=== PATIENT | male | born 1950 | race Caucasian/White ===

== ENCOUNTER 2016-05-18 08:24 | Inpatient (IN) | payer BC ==
--- NOTE | 2016-05-12 17:49 | HP ---
HISTORY AND PHYSICAL: DATE OF ADMISSION/SURGERY: 05/18/16 PROCEDURE: Left total hip arthroplasty. CHIEF COMPLAINT: Left hip pain. HISTORY OF PRESENT ILLNESS: Mr. Velez is a 65-year-old gentleman with complaints of left hip pain. He has failed conservative management. He has elected to proceed with a left total hip arthroplasty, which is scheduled for with Dr. Schrader. PAST MEDICAL HISTORY: Diabetes, acid reflux. PAST SURGICAL HISTORY: Right total hip arthroplasty, cataract removal, left foot surgery for a bone spur. CURRENT MEDICATIONS: 1. Lovastatin. 2. Aspirin. 3. Glyburide. 4. Metformin. 5. Fish oil. 6. Zoton. 7. Glucosamine sulfate. ALLERGIES: No known drug allergies. FAMILY HISTORY: Heart disease, stomach cancer, diabetes. SOCIAL HISTORY: This 65-year-old gentleman lives with his . He is retired. He does not smoke, use drugs or alcohol. REVIEW OF SYSTEMS: A complete 14-point review of systems was reviewed with the patient, was all negative except history of diabetes. PHYSICAL EXAMINATION GENERAL: He is well developed, well nourished, he is in no acute distress. VITAL SIGNS: He stands 6 feet 2 inches tall, weighs 230 pounds. His blood pressure is 150/72, his heart rate is 68. HEENT: Normocephalic, atraumatic. NECK: Supple. No palpable lymph nodes. Trachea is midline. PULMONARY: The lungs are clear to auscultation bilaterally. No wheezes, rhonchi, or rales. CARDIO: Regular rate and rhythm, strong S1 and S2. No murmurs, gallops, or rubs. No peripheral edema. ABDOMEN: Soft, nontender, nondistended. MUSCULOSKELETAL: Left lower extremity: Skin is intact. Decreased range of motion of the left hip. He walks with a slightly antalgic type gait. His lower extremity muscle group strengths are intact at 5/5. He has 2+ dorsalis pedis pulses and intact sensation. NEUROLOGICAL: He is alert and oriented x3. Cranial nerves II through XII are intact. ASSESSMENT/PLAN: Mr. Velez is a 65-year-old gentleman with complaints of left hip pain secondary to advanced osteoarthritis. He has failed conservative management and has elected to proceed with a left total hip arthroplasty which is scheduled for 05/18/[address] Schrader discussed the risks and benefits of the surgery at today's visit and all of his questions were answered. Coumadin and Colace were sent to his pharmacy for postoperative DVT prophylaxis, and to help with the constipation he has a current prescription for Percocet, so no pain medication was sent today. He will see Dr. Schrader back 10 to 14 days after the surgery. MAGEN ESQUEDA [id number]/[facility] #: [id number] MTDD
[~2016-05-18 08:24] MED LIST: Buffered Lidocaine 1% SYRIN* 3 ML/SYR SYRINGE INTRADERM ONE; Dexamethasone IV* 4 MG/ML 1 ML (4 MG) IV SLOW PU ONE; Famotidine IV* 10 MG/ML 2 ML (20 mg) IV ONE
[2016-05-18] MEDS ORDERED: ceFAZolin 2 GM PREMIX(*) 2 GM/50 ML BAG IVPB ONE (08:36)
[2016-05-18] MEDS ORDERED: Famotidine IV* 10 MG/ML 2 ML (20 mg) ONE (08:36)
[2016-05-18] MEDS ORDERED: Dexamethasone IV* 4 MG/ML 1 ML (4 MG) ONE (08:36)
[2016-05-18] MEDS ORDERED: Ondansetron INJ* 2 MG/ML VIAL ONE (10:15)
[2016-05-18] MEDS ORDERED: Propofol* 10 MG/ML 20 ML BTL IV PUSH ONE (10:15)
[2016-05-18] MEDS ORDERED: Bupivacaine 0.5% SDV PF* 30 ML VIAL ONE (10:15)
[2016-05-18] MEDS ORDERED: Midazolam* 1 MG/ML 5 ML VIAL (5 MG) ONE (10:58)
[2016-05-18] MEDS ORDERED: Morphine PF AMP (0.5MG/ML)* 5 MG/10 ML AMP ONE (10:59)
[2016-05-18] MEDS ORDERED: KETAMINE HCL* 50 MG/ML 10 ML VIAL ONE (10:59)
[2016-05-18] MEDS ORDERED: fentaNYL* 50 MCG/ML 2 ML VIAL (100 MCG VIAL) ONE (11:30)
[2016-05-18] MEDS ORDERED: Glycopyrrolate IV* 0.2 MG/ML 1 ML VIAL ONE (12:09)
[2016-05-18] MEDS ORDERED: Scopolamine 1.5 mg* PATCH TRANSDERM PRN (12:29)
[2016-05-18] MEDS ORDERED: oxyCODONE/Acetamin 5/325 MG* TAB PO PRN ×2 (12:29)
[2016-05-18] MEDS ORDERED: Nalbuphine* 20 MG/ML 1 ML VIAL IV PRN ×2 (12:29)
[2016-05-18] MEDS ORDERED: fentaNYL* 50 MCG/ML 2 ML VIAL (100 MCG VIAL) IV PRN (12:29)
[2016-05-18] MEDS ORDERED: Ondansetron INJ* 2 MG/ML VIAL IV PRN (12:29)
[2016-05-18] MEDS ORDERED: Naloxone* 0.4 MG/ML 1 ML VIAL IV PRN (12:29)
[2016-05-18] MEDS ORDERED: Phenylephrine INJ* 10 MG/ML 1 ML VIAL (10 MG) ONE (13:19)
--- NOTE | 2016-05-18 13:52 | RAD ---
INDICATION: Left total hip replacement TECHNIQUE: An AP view of the pelvis was obtained. FINDINGS: Single crosstable view demonstrates a right hip prosthesis in anatomic alignment in the AP projection. The acetabulum as well as femoral shaft components of the left prosthesis appear to be anatomically aligned. The left femoral head prosthesis is currently absent. Remaining visualized bones are intact and appropriately aligned. IMPRESSION: Anatomic alignment of incomplete left hip prosthesis in the AP projection.
[2016-05-18] MEDS ORDERED: Acetaminophen TAB* 325 MG PO PRN (14:18)
[2016-05-18] MEDS ORDERED: Bisacodyl SUPP* 10 MG SUPP PR PRN (14:29)
[2016-05-18] MEDS ORDERED: LACTULOSE* 30 ML UDC PO PRN (14:29)
[2016-05-18] MEDS ORDERED: Polyethylene Glycol 3350* 17 GM PACKET PO PRN (14:29)
--- NOTE | 2016-05-18 15:20 | RAD ---
HISTORY: Status post left total hip arthroplasty COMPARISONS: May 12, 2016 VIEWS: 3, Frontal view of the pelvis with frontal and frog-leg views of the left hip FINDINGS: BONE DENSITY: Normal. BONES: The patient is status post bilateral hip arthroplasty. On the left, there is no hardware failure or osteolysis. JOINTS: The patient is status post bilateral hip arthroplasty ALIGNMENT: There is no dislocation. SOFT TISSUES: Unremarkable. OTHER FINDINGS: None. IMPRESSION: STATUS POST BILATERAL HIP ARTHROPLASTY
[2016-05-18] MEDS ORDERED: Dextrose 50% Syringe 50 ML* 25 GM/50 ML SYRINGE IV PUSH PRN (15:56)
[2016-05-18] MEDS ORDERED: Insulin LISPRO* 1 UNITS UNIT SUBCUT SCH (16:30)
[2016-05-18] MEDS ORDERED: ceFAZolin 1 GM in Dextrose (*) 1 GM/50 ML BAG IVPB SCH (17:00)
[2016-05-18] MEDS ORDERED: Warfarin TAB(*) 6 MG PO ONE (17:00)
[2016-05-18] MEDS: Atorvastatin* 10 MG TAB PO SCH (17:34)
--- NOTE | 2016-05-18 18:24 | CONS ---
CONSULTATION REPORT: DATE OF CONSULT: 05/18/16 REQUESTING PHYSICIAN FOR CONSULTATION: Dr. Schrader. ATTENDING PHYSICIAN WHILE IN THE HOSPITAL: Dr. Edie Cornell *(report dictated by Dion Zaldivar NP). REASON FOR MEDICAL CONSULTATION: Medical management and evaluation of comorbid medical problems. HISTORY OF PRESENT ILLNESS: I refer you to Dr. Scrhader's H and P for further details. In short, Mr. Velez is a 65-year-old male patient who has been having some left hip pain for sometime. In fact, he had his right hip replaced and now the left hip was bothering him. He was failing conservative therapy in the outpatient setting. The patient felt that he was ready for left total hip replacement. This was offered by Dr. Schrader and he underwent the procedure today. He is evaluated in the PACU. He states he is feeling well. He denies having any chest pain or any shortness of breath. He denies having any abdominal pain. He states that his pain is well controlled. He denies having any numbness or tingling in the lower extremities. His only complaint is that he has a headache that feels worse if he lies down. Other than this, he denies having any other complaints. PAST MEDICAL HISTORY: Significant for: 1. Diabetes. 2. GERD. 3. Hyperlipidemia. 4. Osteoarthritis. 5. Hypertension. PAST SURGICAL HISTORY: 1. He has had a right total hip arthroplasty. 2. Foot surgery. 3. Cataracts. 4. Left total hip arthroplasty done today. HOME MEDICATIONS: According to the preop list include: 1. Zoton 15 mg p.o. q.a.m. 2. [place]-3 fatty acids 300 mg p.o. t.i.d. 3. Mevacor 40 mg daily. 4. Glimepiride/metformin 2 tablets p.o. b.i.d. 5. Glucosamine 1000 mg p.o. b.i.d. 6. Aspirin 81 mg daily. ALLERGIES TO MEDICATIONS: Include no known drug allergies. FAMILY HISTORY: His mother was diabetic. Father had heart disease. SOCIAL HISTORY: He does not smoke. He does not drink. Surrogate decision maker is his . REVIEW OF SYSTEMS: There is no documented fever. He denied having any significant weight change. There was no double vision. There is no ear discharge. No rhinorrhea. No sore throat. No thyroid enlargement. Denies having any chest pain. No orthopnea. No nocturnal dyspnea. There is no abdominal pain. No nausea. No vomiting. No dysuria. No frequency. No seizure. No loss of consciousness. No pruritus and no skin ulcerations. Review of 14 systems completed, all others negative. PHYSICAL EXAM: Reveals vital signs of blood pressure 133/67 with a pulse of 52 , respirations 16, O2 sat 99%, and temperature 97.3. Generally, at this time, Mr. Velez is a 65-year-old male patient. He appears to be well nourished, well developed. He does not appear to be in any acute distress. HEENT: Head atraumatic and normocephalic. Eyes: Sclerae are anicteric and not pale. Throat: Oral mucosa appears to be moist. No oropharyngeal erythema. Neck: Supple. Heart: Sounds S1, S2. Regular rate and rhythm. No murmurs, rubs, or gallops. Lungs: Clear to auscultation. No wheezes, rales, or rhonchi. Abdomen : Soft, flat, nontender. Bowel sounds present. Extremities: Pulses 2+ throughout. He is able to move the upper extremities with 5/5 strength. Lower extremities are in a hip abductor pillow. Distal CSM checks are intact. Neurologically, he is awake, alert, and oriented x3. No gross focal deficits. His skin is intact with the exception he has an incision to the left hip which is covered with a dressing, dry and intact. DIAGNOSTIC STUDIES/LAB DATA: Preoperatively revealed WBC of 6.3, RBC of 4.66, hemoglobin 14.4, hematocrit of 42, platelet count of 220. INR was 0.88. Sodium 137, potassium 4.3, chloride 107, bicarb 30, BUN 12, creatinine 1.09. Urine was negative preoperatively. He had an EKG preoperatively, which shows normal sinus rhythm, rate of 55. No ST elevations or T-wave inversions. He had a chest x-ray in December, which showed no active cardiopulmonary disease. Old medical records were reviewed. ASSESSMENT AND PLAN: Mr. Velez is a 65-year-old male patient coming into the orthopedic services today for elective left total hip replacement. We were asked to evaluate in consult for evaluation of his medical problems. Recommendations at this point are: 1. Status post left total hip replacement: I will defer the management of this to Dr. Schrader and her team. 2. Diabetes: We will go ahead and put him on sliding scale. 3. Gastroesophageal reflux disease: Continue medications as prescribed. 4. Hyperlipidemia: Continue statin therapy. 5. Hypertension: Currently not on any medications. We will continue lifestyle modifications. Blood pressure appears to be stable. 6. Arthritis: Follow up with his primary. 7. DVT prophylaxis: Per the primary team. 8. Fluids, electrolytes, and nutrition: I would recommend a consistent carbohydrate diet. TIME SPENT: Time spent on the consult was 60 minutes; greater than half the time was spent [id number] with the patient obtaining my history and physical, other half the time spent going over the plan of care with the patient and implementing plan of care. I did discuss the plan of care with my attending, Dr. Cornell; she is in agreement. DION ZALDIVAR NP CC: Dr. Schrader; Dr. Davison* [id number]/[facility] #: [id number] MTDD
[2016-05-18] MEDS: ceFAZolin 1 GM in Dextrose (*) 1 GM/50 ML BAG IVPB SCH (19:34)
[2016-05-18] MEDS: Magnesium Hydroxide LIQ* 30 ML UDC PO SCH (20:21)
[2016-05-18] MEDS: Docusate CAP* 100 MG PO SCH (20:21)
[2016-05-18] MEDS ORDERED: Glyburid/Metformin 2.5/500(NF) TAB PO SCH (21:00)
[2016-05-18] MEDS: Insulin LISPRO* 1 UNITS UNIT SUBCUT SCH (23:30)
[2016-05-19] MEDS ORDERED: diPHENhydraMINE PO* 25 MG PO PRN (03:30)
[2016-05-19] MEDS ORDERED: oxyCODONE TAB* 5 MG TAB PO PRN (03:30)
[2016-05-19] MEDS ORDERED: Morphine INJ* 10 MG/ML 1 ML SYRINGE IV PRN (03:30)
[2016-05-19] MEDS ORDERED: Ondansetron INJ* 2 MG/ML VIAL IV PRN (03:30)
[2016-05-19] MEDS ORDERED: diPHENhydraMINE IV* 50 MG/ML 1 ml VIAL (BENADRYL) IV PRN (03:30)
[2016-05-19] MEDS ORDERED: Ondansetron TAB* 4 MG PO PRN (03:30)
[2016-05-19] MEDS: ceFAZolin 1 GM in Dextrose (*) 1 GM/50 ML BAG IVPB SCH ×2 (03:57→12:08)
[2016-05-19] MEDS: oxyCODONE/Acetamin 5/325 MG* TAB PO PRN ×4 (03:59→18:23)
--- NOTE | 2016-05-19 05:44 | OP ---
OPERATIVE REPORT: DATE OF OPERATION: 05/18/16 DATE OF : 52 SURGEON: Vandana Schrader MD PROGRAM EVALUATOR: MAGEN Garsia ANESTHESIOLOGIST: Dr. Ryan. ANESTHESIA: Spinal epidural. PRE-OP DIAGNOSIS: Severe end-stage degenerative osteoarthritis of the left hip joint. POST-OP DIAGNOSIS: Severe end-stage degenerative osteoarthritis of the left hip joint. OPERATIVE PROCEDURE: Left total hip arthroplasty. INDICATIONS: Mr. Velez is a 65-year-old gentleman with over 1 year of increasingly severe left hip pain. He failed conservative treatment with antiinflammatories, pain medication, ambulatory assist jeny devices, and physical therapy. Radiographs confirmed end-stage arthritis of the hip joint with bone-on- bone contact. He elected to undergo left total hip arthroplasty due to continued pain and decreased quality of life. Informed consent was obtained from the patient. He understood the risks of the procedure included b ut were not limited to bleeding, infection, damage to nearby structures, continued pain, need for fu rther surgery, intraoperative fracture, nerve palsy, hardware failure or loosening, leg length discr epancy, dislocation, stroke, heart attack, blood clot, and . He wished to proceed. COMPLICATIONS: None. ESTIMATED BLOOD LOSS: 350 cc. SPECIMEN: Femoral head and acetabular reaming sent to Pathology. HARDWARE USED: This is uncemented ZapMe total hip hardware. For the cup, a Tritanium hemispheric al cluster hole shell 58F with 125-mm screw. For the insert, a Trident X3 0-degree polyethylene ins ert 40F. For the femoral stem, a size 4 Accolade TMZF with 127-degree neck. For the head, a Biolox delta 40 +0 ceramic femoral head. INTRAOPERATIVE FINDINGS: Intraoperatively, the patient was noted to have severe end-stage arthritis with full-thickness loss of the cartilage in the entire acetabulum and femoral head. Significant o steophyte formation along the inferior and anterior acetabulum. DESCRIPTION OF PROCEDURE: Mr. Velez was identified in the preanesthesia unit. His left lower extre mity was marked as the correct operative side. Informed consent was signed and placed in the chart. The patient was taken to the operating room and placed under spinal epidural anesthesia. A Tidwell catheter was placed. He was placed in the right lateral decubitus position on the peg board with al l bony prominences well padded. Left lower extremity was prepped and draped in the usual sterile fa shion. Preop time-out was made to correctly identify the patient's side and site. Appropriate zhao operative antibiotics were given within 1 hour of incision. A 14-cm posterior hip incision was made with a skin knife and carried down to the lateral fascial la maryjane. Lateral fascial layer was incised in line with the skin incision using a 10-blade. A Charnley retractor was placed. Piriformis and conjoint tendons were easily identified and elevated off the posterolateral femur using electrocautery. These were tagged with two #5 Ethibond's. Next, electro cautery was used to make a standard posterolateral capsular flap and this was also tagged with two # 5 Ethibond's. The hip was carefully dislocated. Lesser troch to center of the femoral head measured 60 mm. Oscillating saw was used to make the nayeli ropriate femoral neck cut. The femur was carefully retracted anteriorly. After appropriate placeme nt of retractors, the acetabulum was easily visualized. Long-handled knife was used to remove the r emaining labrum from the acetabular rim. The acetabulum was sequentially reamed up to a size 57. T here was a thick layer of osteophyte and complete loss of cartilage. 57 trial had excellent fit and stability. A Tritanium 58F cluster hole shell was chosen. This was impacted into the acetabulum w ithout difficulty. Stability of the cup was excellent. There was appropriate anteversion and abduc tion angle. 125-mm cancellous bone screw was placed in the superoposterior quadrant for extra stabi lity. A Trident X3 0-degree polyethylene insert was chosen, 40F. This was impacted into the acetab ulum without difficulty. Stability of the liner was checked and rechecked and noted to be stable. A thin osteotome was used to remove some anterior and inferior osteophytes. Attention was next turned to preparation of the femoral canal. After appropriate placement of retra ctor, the proximal femur was easily visualized. Box cut osteotome and canal finder were used to ent er the proximal femur. The canal was sequentially broached up to a size 4. Size 4 broach had good fit and appropriate anteversion. A 127 neck trial was chosen with a 40 +0 head trial. Lesser troch to center of the femoral head measured 60 mm. The hip was reduced and taken through range of motio n. The hip was extremely stable in all positions. There was good leg length and appropriate soft t issue tension. The hip was carefully dislocated. All trials were carefully removed. Final implant chosen was an Accolade TMZF 127-degree neck, size 4. This was impacted into the femor al canal without difficulty. The final implant was stable with appropriate anteversion. A Biolox d elta ceramic head 40 +0 was chosen. The sleeve and head were impacted on to the femoral neck withou t difficulty. The hip was carefully reduced. The hip was taken through range of motion and was sta ble in all positions. The hip was copiously irrigated with sterile saline. Previously tagged capsule and tendons were kait pproximated to the posterolateral femur through 2 trochanteric drill holes. The lateral fascial lay er was closed using interrupted #1 Vicryl's. The rest of the incision was closed in a layered fashio n using 0 and 2-0 Vicryl's. The skin was closed using running 3-0 Monocryl. Sterile Adaptic, 4x4s, and paper tape were used to cover the incision. The patient's anesthesia was reversed without difficulty. He was taken to the PACU in stable condit ion. Intended weightbearing will be weightbearing as tolerated. Intended DVT prophylaxis will be Co umadin with a Lovenox bridge. [id number]/[facility] #: [id number]
[2016-05-19 05:52] LABS: Hematocrit 34 % (42-52); Hemoglobin 11.9 g/dl (14.0-18.0); Mean Corpuscular HGB Conc 35 g/dl (31-36); Mean Corpuscular Hemoglobin 32 pg (27-31); Mean Corpuscular Volume 90 fL (80-94); Mean Platelet Volume 9 um3 (7.4-10.4); Red Blood Count 3.75 10^6/ul (4.0-5.4); Red Cell Distribution Width 14 % (10.5-15); White Blood Count 10.9 10^3/ul (3.5-10.8)
[2016-05-19 06:15] LABS: Calcium 8.4 mg/dL (8.6-10.3); EGFR African American 90.5 (>60); EGFR Non-African American 70.3 (>60); Potassium 4.3 mmol/L (3.5-5.0)
[2016-05-19] MEDS: Magnesium Hydroxide LIQ* 30 ML UDC PO SCH ×2 (08:05→20:58)
[2016-05-19] MEDS: Insulin LISPRO* 1 UNITS UNIT SUBCUT SCH ×4 (08:06→20:58)
[2016-05-19] MEDS: Docusate CAP* 100 MG PO SCH ×2 (08:08→20:58)
--- NOTE | 2016-05-19 09:41 | PN ---
Progress Note - Progress Note SOAP: Subjective: []Patient seen at bedside. His present. Doing well. Minimal complaints of pain left hip. Denies chest pain, SOB or dizziness. Objective: [] Vital Signs Temp 97.4 F 05/19/16 07:27 Pulse 68 05/19/16 07:27 Resp 18 05/19/16 08:00 BP 123/63 05/19/16 07:27 Pulse Ox 94 05/19/16 08:00 Intake & Output 05/18/16 05/19/16 05/19/16 18:59 06:59 18:59 Intake Total 3450 3395 360 Output Total 1500 325 Balance 3450 1895 35 Weight 223 lb Intake: IV Fluids 3200 1275 LR 3200 1275 Oral 250 2120 360 Output: Tidwell 1500 325 Laboratory Results - last 24 hr 05/18/16 05/18/16 05/18/16 15:24 17:08 22:15 WBC RBC Hgb Hct MCV MCH MCHC RDW Plt Count MPV Neut % (Auto) Lymph % (Auto) [place] % (Auto) Eos % (Auto) Baso % (Auto) Absolute Neuts (auto) Absolute Lymphs (auto) Absolute Monos (auto) Absolute Eos (auto) Absolute Basos (auto) Absolute Nucleated RBC Nucleated RBC % INR (Anticoag Therapy) Sodium Potassium Chloride Carbon Dioxide Anion Gap BUN Creatinine Est GFR ( Amer) Est GFR (Non-Af Amer) BUN/Creatinine Ratio Glucose POC Glucose (mg/dL) 248 H 256 H 295 H Calcium 05/19/16 05/19/16 05/19/16 05:29 05:29 05:30 WBC 10.9 H RBC 3.75 L Hgb 11.9 L Hct 34 L MCV 90 MCH 32 H MCHC 35 RDW 14 Plt Count 204 MPV 9 Neut % (Auto) 77.9 Lymph % (Auto) 11.8 L [place] % (Auto) 10.2 H Eos % (Auto) 0 Baso % (Auto) 0.1 Absolute Neuts (auto) 8.5 H Absolute Lymphs (auto) 1.3 Absolute Monos (auto) 1.1 H Absolute Eos (auto) 0 Absolute Basos (auto) 0 Absolute Nucleated RBC 0 Nucleated RBC % 0 INR (Anticoag Therapy) 1.03 Sodium 130 L Potassium 4.3 Chloride 96 L Carbon Dioxide 27 Anion Gap 7 BUN 18 Creatinine 1.06 Est GFR ( Amer) 90.5 Est GFR (Non-Af Amer) 70.3 BUN/Creatinine Ratio 17.0 Glucose 265 H POC Glucose (mg/dL) Calcium 8.4 L 05/19/16 07:38 WBC RBC Hgb Hct MCV MCH MCHC RDW Plt Count MPV Neut % (Auto) Lymph % (Auto) [place] % (Auto) Eos % (Auto) Baso % (Auto) Absolute Neuts (auto) Absolute Lymphs (auto) Absolute Monos (auto) Absolute Eos (auto) Absolute Basos (auto) Absolute Nucleated RBC Nucleated RBC % INR (Anticoag Therapy) Sodium Potassium Chloride Carbon Dioxide Anion Gap BUN Creatinine Est GFR ( Amer) Est GFR (Non-Af Amer) BUN/Creatinine Ratio Glucose POC Glucose (mg/dL) 258 H Calcium Left hip dressing is dry and intact calf non tender and soft +DF/PF left ankle Assessment: []s/p Left total hip arthoplasty POD#1 Plan: []PT/OT WBAT Left LE Coumadin with lovenox bridge 8 mg Coumadin today Home 1-2 days
--- NOTE | 2016-05-19 13:32 | PN ---
Subjective Date of Service: 05/19/16 Interval History: pt reports he is doing well, little pain. worked with PT this am and reports he did well. NL BM. No complaints. Objective Active Medications: Acetaminophen (Tylenol Tab*) 650 mg PO Q4H PRN PRN Reason: mild pain or fever Atorvastatin Calcium (Lipitor*) 10 mg PO QPM ALBERTO PRN Reason: Protocol Last Admin: 05/18/16 17:34 Dose: 10 mg Bisacodyl (Dulcolax Supp*) 10 mg AR DAILY PRN PRN Reason: constipation Dextrose (D50w Syringe 50 Ml*) 12.5 gm IV PUSH .FOR FS < 60 - SS PRN PRN Reason: FS < 60 Diphenhydramine HCl (Benadryl Iv*) 12.5 mg IV Q6H PRN PRN Reason: PRURITIS Diphenhydramine HCl (Benadryl Po*) 25 mg PO Q6H PRN PRN Reason: insomnia Docusate Sodium (Colace Cap*) 100 mg PO BID [facility] Last Admin: 05/19/16 08:08 Dose: 100 mg Enoxaparin Sodium (Lovenox(*)) 30 mg SUBCUT Q24H [facility] Lactated Ringer's (Lactated Ringers 1000 Ml Bag*) 1,000 mls @ 100 mls/hr IV PER RATE [facility] Last Admin: 05/19/16 02:31 Dose: 100 mls/hr Insulin Human Lispro (Humalog*) 0 units SUBCUT ACHS [facility] PRN Reason: Protocol Last Admin: 05/19/16 12:45 Dose: 9 units Lactulose (Lactulose*) 30 ml PO Q6H PRN PRN Reason: constipation Magnesium Hydroxide (Milk Of Magnesia Liq*) 30 ml PO BID [facility] Last Admin: 05/19/16 08:05 Dose: 30 ml Morphine Sulfate (Morphine Inj (Syringe)*) 5 mg IV Q2H PRN PRN Reason: PAIN Ondansetron HCl (Zofran Inj*) 4 mg IV Q6H PRN PRN Reason: nausea Ondansetron HCl (Zofran Tab*) 4 mg PO Q6H PRN PRN Reason: NAUSEA Oxycodone HCl (Roxycodone Tab*) 10 mg PO Q4H PRN PRN Reason: breakthrough pain Oxycodone/Acetaminophen (Percocet 5/325 Tab*) 1 tab PO Q4H PRN PRN Reason: PAIN Last Admin: 05/19/16 12:13 Dose: 1 tab Pharmacy Profile Note (Scopolomine Patch Remove*) 1 note PATCH OFF .AFTER 72 HOURS ALBERTO Stop: 05/21/16 13:01 Pharmacy Profile Note (Coumadin Daily Reminder*) 1 note FOLLOW UP 1700 [facility] Polyethylene Glycol/Electrolytes (Miralax*) 17 gm PO DAILY PRN PRN Reason: Constipation Scopolamine (Transderm-Scop 1.5 Mg Patch*) 1 patch TRANSDERM Q72H PRN PRN Reason: NAUSEA - REFRACTORY Warfarin Sodium (Coumadin Tab(*)) 8 mg PO ONCE@1700 ONE PRN Reason: Protocol Stop: 05/19/16 17:01 Vital Signs 05/18/16 05/18/16 05/18/16 17:53 17:59 18:35 Temperature Pulse Rate 64 Respiratory 18 Rate Blood Pressure 132/69 (mmHg) O2 Sat by Pulse 98 94 94 Oximetry 05/18/16 05/18/16 05/18/16 19:22 19:37 19:39 Temperature Pulse Rate Respiratory 18 17 17 Rate Blood Pressure (mmHg) O2 Sat by Pulse Oximetry 05/18/16 05/18/16 05/18/16 20:28 21:22 22:35 Temperature 97.3 F 97.4 F Pulse Rate 58 65 Respiratory 22 22 Rate Blood Pressure 137/74 138/76 (mmHg) O2 Sat by Pulse 95 94 94 Oximetry 05/18/16 05/19/16 05/19/16 23:49 03:26 03:59 Temperature 97.6 F 97.8 F Pulse Rate 64 65 Respiratory 16 18 16 Rate Blood Pressure 136/67 125/86 (mmHg) O2 Sat by Pulse 97 96 Oximetry 05/19/16 05/19/16 05/19/16 05:59 07:27 07:45 Temperature 97.4 F Pulse Rate 68 Respiratory 16 15 20 Rate Blood Pressure 123/63 (mmHg) O2 Sat by Pulse 94 Oximetry 05/19/16 05/19/16 05/19/16 08:00 09:45 11:04 Temperature 97.8 F Pulse Rate 60 Respiratory 18 18 14 Rate Blood Pressure 136/60 (mmHg) O2 Sat by Pulse 94 96 Oximetry 05/19/16 12:13 Temperature Pulse Rate Respiratory 18 Rate Blood Pressure (mmHg) O2 Sat by Pulse Oximetry Oxygen Devices in Use Now: None Appearance: 65 yo healthy appearing male sitting up in a chair in NAD. A+O x3 Eyes: No Scleral Icterus, PERRLA Ears/Nose/Mouth/Throat: NL Teeth, Lips, Gums, Mucous Membranes Moist Neck: NL Appearance and Movements; NL JVP Respiratory: Symmetrical Chest Expansion and Respiratory Effort, Clear to Auscultation Cardiovascular: NL Sounds; No Murmurs; No JVD, RRR, No Edema Abdominal: NL Sounds; No Tenderness; No Distention Lymphatic: No Cervical Adenopathy Extremities: No Edema, No Clubbing, Cyanosis, - - left hip dressing CD+I Skin: No Rash or Ulcers, No Nodules or Sclerosis Neurological: Alert and Oriented x 3, NL Sensation, NL Muscle Strength and Tone Lines/Tubes/Other Access: Clean, Dry and Intact Peripheral IV Nutrition: Taking PO's Result Diagrams: 05/19/16 05:29 05/19/16 05:30 Assess/Plan/Problems-Billing Assessment: 65 yo male with a PMH of HTN, DM, HLD who underwent an elective left total hip replacement by Dr. Schrader on 05/18. Hospital Medicine was asked to co-medical manage. - Patient Problems (1) Status post total hip replacement, left Comment: - Dispo per ORTHO. POD #1 - Doing well. - pain management, bowel regimen. - PT (2) Diabetes Comment: Glucose elevated, did receive decadron in surgery. Continue Lispro SS and consistent carb diet. Resume oral medications at discharge. (3) HLD (hyperlipidemia) Comment: Continue Statin. (4) HTN (hypertension) Comment: Controlled. Pt is not currently on any medication. (5) DVT prophylaxis Comment: Continue Lovenox and Warfarin per Ortho. (6) Full code status Status and Disposition: Inpatient, Dispo per Ortho. Possible DC to home tomorrow
[2016-05-19] MEDS ORDERED: Enoxaparin(*) 30 MG/0.3 ML SYR SUBCUT SCH (15:00)
[2016-05-19] MEDS ORDERED: Warfarin TAB(*) 4 MG PO ONE (17:00)
[2016-05-19] MEDS: Atorvastatin* 10 MG TAB PO SCH (17:21)
[2016-05-20] MEDS: oxyCODONE/Acetamin 5/325 MG* TAB PO PRN ×2 (05:24→09:43)
[2016-05-20 07:13] LABS: Hematocrit 31 % (42-52); Hemoglobin 10.8 g/dl (14.0-18.0)
[2016-05-20 07:32] LABS: Calcium 8.1 mg/dL (8.6-10.3); EGFR African American 86.7 (>60); EGFR Non-African American 67.4 (>60); Potassium 3.6 mmol/L (3.5-5.0)
--- NOTE | 2016-05-20 07:46 | PN ---
Progress Note - Progress Note SOAP: Subjective: Pt. is doing well, pain well controlled. Objective: LLE - dressing changed, inc c/d/i. distally nvi. Vital Signs: Temp Pulse Resp BP Pulse Ox 97.7 F 80 18 130/67 97 05/20/16 07:25 05/20/16 07:25 05/20/16 07:25 05/20/16 07:25 05/20/16 07:25 Laboratory Results - last 24 hr 05/19/16 05/19/16 05/19/16 00:18 07:38 12:08 Hgb Hct INR (Anticoag Therapy) Sodium Potassium Chloride Carbon Dioxide Anion Gap BUN Creatinine Est GFR ( Amer) Est GFR (Non-Af Amer) BUN/Creatinine Ratio Glucose POC Glucose (mg/dL) 258 H 254 H Hemoglobin A1c 9.3 H Calcium 05/19/16 05/19/16 05/20/16 17:21 20:28 06:46 Hgb 10.8 L Hct 31 L INR (Anticoag Therapy) Sodium Potassium Chloride Carbon Dioxide Anion Gap BUN Creatinine Est GFR ( Amer) Est GFR (Non-Af Amer) BUN/Creatinine Ratio Glucose POC Glucose (mg/dL) 228 H 158 H Hemoglobin A1c Calcium 05/20/16 05/20/16 06:46 06:46 Hgb Hct INR (Anticoag Therapy) 1.30 H Sodium 132 L Potassium 3.6 Chloride 96 L Carbon Dioxide 28 Anion Gap 8 BUN 22 Creatinine 1.10 Est GFR ( Amer) 86.7 Est GFR (Non-Af Amer) 67.4 BUN/Creatinine Ratio 20.0 Glucose 270 H POC Glucose (mg/dL) Hemoglobin A1c Calcium 8.1 L Assessment: 65 yo M pod 2 s/p LTHA Plan: wbat with post. hip precautions pt/ot plan d/c to home today with vns lovenox dose this am, home on ecasa 325 bid
[2016-05-20] MEDS: Docusate CAP* 100 MG PO SCH (07:59)
[2016-05-20] MEDS: Insulin LISPRO* 1 UNITS UNIT SUBCUT SCH ×2 (07:59→12:12)
[2016-05-20] MEDS: Magnesium Hydroxide LIQ* 30 ML UDC PO SCH (07:59)
[2016-05-20] MEDS ORDERED: Insulin GLARGINE(*) 1 UNITS UNIT SUBCUT ONE (08:16)
[2016-05-20] MEDS ORDERED: Aspirin EC TAB* 325 MG PO SCH ×3 (09:23→21:00)
[2016-05-20 11:45] VITALS: BP 131/72
--- NOTE | 2016-05-20 11:59 | CONSULT ---
Subjective Reason for Visit: osteoarthritis left hip Admission Date: 05/18/16 Glucose Level On Admission: 183 History Of Present Illness: Mr. Velez is a 65 year old male, admitted on 05/18/16 for elective left total hip arthroplasty with Dr. Schrader. He has a history of type II diabetes with a recent Hgb A1C of 9.3%. He reports that his previous Hgb A1C was much lower. In December, he had a right total hip arthroplasty, and so for the past 4 months , he has been much less active. He reports eating differently over the last few months, more sweets and casseroles. He has a glucometer but does not SMBG. He has not had formal diabetes education. He does not count carbohydrates. Patient History Surgical History: Yes Surgery Procedure, Year, and Place: BONE SPUR REMOVAL L FOOT 2009 [facility] [place]. 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, no formal exercise Review Of Systems - Review of Systems Constant: No Weight Loss, No Weight Gain, No Poor Appetite Cardiovascular: No Chest Pain, No Shortness of Breath Respiratory: No Shortness Of Breath Abdominal: No Nausea, No Diarrhea, No Vomitting Neurological: No Numbness/Tingling Endocrine: No Polyphagia, No Polydipsia, - - reports polyuria Objective Allergies Allergy/AdvReac Type Severity Reaction Status Date / Time No Known Allergies Allergy Verified 05/18/16 08:47 Home Medications Medication Instructions Recorded Confirmed Type Glyburid/Metformin 2.5/500(NF) 2 tab PO BID 11/25/15 05/18/16 History [Glucovance (NF)] Lovastatin [Mevacor] 40 mg PO QPM 11/25/15 05/18/16 History [place]-3 Fatty Acids [Fish Oil] 300 mg PO BID 11/25/15 05/18/16 History Glucosamine Sulfate 1,000 mg PO BID 12/24/15 05/18/16 History Zoton 15mg 15 mg PO QAM 12/24/15 05/18/16 History Aspirin EC TAB* [Ecotrin EC TAB*] 325 mg PO BID tab.ec 05/20/16 Rx oxyCODONE/Acetamin 5/325 MG* 1 tab PO Q4H PRN #0 tab MDD 6 05/20/16 Rx [Percocet 5/325 TAB*] Hospital Medications: Current Medications Acetaminophen (Tylenol Tab*) 650 mg PO Q4H PRN PRN Reason: mild pain or fever Aspirin (Ecotrin Ec Tab*) 325 mg PO BID@0900,2100 [facility] Last Admin: 05/20/16 09:43 Dose: 325 mg Atorvastatin Calcium (Lipitor*) 10 mg PO QPM [facility] PRN Reason: Protocol Last Admin: 05/19/16 17:21 Dose: 10 mg Bisacodyl (Dulcolax Supp*) 10 mg SD DAILY PRN PRN Reason: constipation Dextrose (D50w Syringe 50 Ml*) 12.5 gm IV PUSH .FOR FS < 60 - SS PRN PRN Reason: FS < 60 Diphenhydramine HCl (Benadryl Iv*) 12.5 mg IV Q6H PRN PRN Reason: PRURITIS Diphenhydramine HCl (Benadryl Po*) 25 mg PO Q6H PRN PRN Reason: insomnia Docusate Sodium (Colace Cap*) 100 mg PO BID [facility] Last Admin: 05/20/16 07:59 Dose: 100 mg Lactated Ringer's (Lactated Ringers 1000 Ml Bag*) 1,000 mls @ 100 mls/hr IV PER RATE [facility] Last Admin: 05/19/16 02:31 Dose: 100 mls/hr Insulin Human Lispro (Humalog*) 0 units SUBCUT ACHS [facility] PRN Reason: Protocol Last Admin: 05/20/16 07:59 Dose: 9 units Lactulose (Lactulose*) 30 ml PO Q6H PRN PRN Reason: constipation Magnesium Hydroxide (Milk Of Magnesia Liq*) 30 ml PO BID [facility] Last Admin: 05/20/16 07:59 Dose: 30 ml Morphine Sulfate (Morphine Inj (Syringe)*) 5 mg IV Q2H PRN PRN Reason: PAIN Ondansetron HCl (Zofran Inj*) 4 mg IV Q6H PRN PRN Reason: nausea Ondansetron HCl (Zofran Tab*) 4 mg PO Q6H PRN PRN Reason: NAUSEA Oxycodone HCl (Roxycodone Tab*) 10 mg PO Q4H PRN PRN Reason: breakthrough pain Oxycodone/Acetaminophen (Percocet 5/325 Tab*) 1 tab PO Q4H PRN PRN Reason: PAIN Last Admin: 05/20/16 09:43 Dose: 1 tab Pharmacy Profile Note (Scopolomine Patch Remove*) 1 note PATCH OFF .AFTER 72 HOURS [facility] Stop: 05/21/16 13:01 Pharmacy Profile Note (Coumadin Daily Reminder*) 1 note FOLLOW UP 1700 [facility] Last Admin: 05/19/16 17:22 Dose: 1 note Polyethylene Glycol/Electrolytes (Miralax*) 17 gm PO DAILY PRN PRN Reason: Constipation Scopolamine (Transderm-Scop 1.5 Mg Patch*) 1 patch TRANSDERM Q72H PRN PRN Reason: NAUSEA - REFRACTORY Lab Data: Sodium 132 mmol/L (133-145) L 05/20/16 06:46 Potassium 3.6 mmol/L (3.5-5.0) 05/20/16 06:46 BUN 22 mg/dL (6-24) 05/20/16 06:46 Creatinine 1.10 mg/dL (0.67-1.17) 05/20/16 06:46 Hemoglobin A1c 9.3 % (Less than 6.0) H 05/19/16 00:18 Calcium 8.1 mg/dL (8.6-10.3) L 05/20/16 06:46 Vital Signs: Vital Signs 05/20/16 05/20/16 05/20/16 05:24 07:24 07:25 Temperature 36.5 C Pulse Rate 80 Respiratory 16 18 18 Rate Blood Pressure 130/67 (mmHg) O2 Sat by Pulse 97 Oximetry 05/20/16 05/20/16 05/20/16 08:00 09:43 11:37 Temperature 37.1 C Pulse Rate 89 Respiratory 18 18 18 Rate Blood Pressure 131/72 (mmHg) O2 Sat by Pulse 97 95 Oximetry Height: 6 ft Weight: 101.151 kg Body Mass Index (BMI): 30.2 Physical Exam General Appearance: Positive: Alert, Oriented x3, Well Developed, No Distress, Lying In Bed Respiratory: Positive: Non-Labored Peripheral Extremities: Positive: Pulse: Dosalis Pedis Plan Of Care Patient's Next Step: Pt will be discharged to home today. He will continue Metformin. He will count carbohydrates and work on making changes to his diet. He will exercise as tolerated, in compliance with his physical therapy and postoperative restrictions. He will follow up at [facility] as an outpatient. Medication Changes: none Referral To: [facility] For Further OutPT Diabetic Training Diagnosis: Type II diabetes, poorly controlled Discharge Plan: Pt was given information on type II diabetes, diet, hyper and hypoglycemia. He will follow up at [facility] as an outpatient. Education Prior Diabetic Education: No Handouts Provided: Living well with diabetes, hypo/hyperglycemia, carbohydrate recommendations Goals Goals: According to the [place] [employer], the following are your goals for Hemaglobin A1C, Blood Glucose, Cholesterol and Blood Pressure. Hemaglobin A1C * <7.0% for most * <6.5% for "healthy" * <8.0% for "Less Healthy" Blood Glucose * Fasting Blood Glucose: 80-130 mg/dl * 2 Hour Post Prandial Glucose <180 mg/dl Cholesterol * Triglycerides <150 * LDL <100, Overt CVD <70 * HDL >40
--- NOTE | 2016-05-20 12:19 | PN ---
Subjective Date of Service: 05/20/16 Interval History: Patient seen and examined at bedside. Mr. Velez denies fever/chills, CP, SOB, abd pain, n/v. He reports working with physical therapy and reports adequate pain control. Teaching and discussion was had with patient and his regarding his elevated HgbA1c. The patient admits that he does not check his BG at home that he has been less active these past few months due to a hip replacement in December. He also has not been compliant with diet. certified lactation educator consult placed. Patient states he takes his medications and would like to avoid adding insulin if he could. He would like to work on better controlling his diet before adding any other medications. Patient to follow-up with [facility] and PCP in regards to DM control. Family History: Unchanged from Admission Social History: Unchanged from Admission Past Medical History: Unchanged from Admission Objective Active Medications: Acetaminophen (Tylenol Tab*) 650 mg PO Q4H PRN PRN Reason: mild pain or fever Aspirin (Ecotrin Ec Tab*) 325 mg PO BID@0900,2100 [facility] Last Admin: 05/20/16 09:43 Dose: 325 mg Atorvastatin Calcium (Lipitor*) 10 mg PO QPM [facility] PRN Reason: Protocol Last Admin: 05/19/16 17:21 Dose: 10 mg Bisacodyl (Dulcolax Supp*) 10 mg SD DAILY PRN PRN Reason: constipation Dextrose (D50w Syringe 50 Ml*) 12.5 gm IV PUSH .FOR FS < 60 - SS PRN PRN Reason: FS < 60 Diphenhydramine HCl (Benadryl Iv*) 12.5 mg IV Q6H PRN PRN Reason: PRURITIS Diphenhydramine HCl (Benadryl Po*) 25 mg PO Q6H PRN PRN Reason: insomnia Docusate Sodium (Colace Cap*) 100 mg PO BID [facility] Last Admin: 05/20/16 07:59 Dose: 100 mg Lactated Ringer's (Lactated Ringers 1000 Ml Bag*) 1,000 mls @ 100 mls/hr IV PER RATE [facility] Last Admin: 05/19/16 02:31 Dose: 100 mls/hr Insulin Human Lispro (Humalog*) 0 units SUBCUT ACHS [facility] PRN Reason: Protocol Last Admin: 05/20/16 12:12 Dose: Not Given Lactulose (Lactulose*) 30 ml PO Q6H PRN PRN Reason: constipation Magnesium Hydroxide (Milk Of Magnesia Liq*) 30 ml PO BID [facility] Last Admin: 05/20/16 07:59 Dose: 30 ml Morphine Sulfate (Morphine Inj (Syringe)*) 5 mg IV Q2H PRN PRN Reason: PAIN Ondansetron HCl (Zofran Inj*) 4 mg IV Q6H PRN PRN Reason: nausea Ondansetron HCl (Zofran Tab*) 4 mg PO Q6H PRN PRN Reason: NAUSEA Oxycodone HCl (Roxycodone Tab*) 10 mg PO Q4H PRN PRN Reason: breakthrough pain Oxycodone/Acetaminophen (Percocet 5/325 Tab*) 1 tab PO Q4H PRN PRN Reason: PAIN Last Admin: 05/20/16 09:43 Dose: 1 tab Pharmacy Profile Note (Scopolomine Patch Remove*) 1 note PATCH OFF .AFTER 72 HOURS [facility] Stop: 05/21/16 13:01 Pharmacy Profile Note (Coumadin Daily Reminder*) 1 note FOLLOW UP 1700 [facility] Last Admin: 05/19/16 17:22 Dose: 1 note Polyethylene Glycol/Electrolytes (Miralax*) 17 gm PO DAILY PRN PRN Reason: Constipation Scopolamine (Transderm-Scop 1.5 Mg Patch*) 1 patch TRANSDERM Q72H PRN PRN Reason: NAUSEA - REFRACTORY Vital Signs 05/19/16 05/19/16 05/19/16 14:13 15:25 15:53 Temperature 98.8 F Pulse Rate 72 Respiratory 18 18 Rate Blood Pressure 128/60 (mmHg) O2 Sat by Pulse 94 94 Oximetry 05/19/16 05/19/16 05/19/16 18:23 19:24 20:23 Temperature 99.3 F Pulse Rate 81 Respiratory 18 16 16 Rate Blood Pressure 123/58 (mmHg) O2 Sat by Pulse 96 Oximetry 05/20/16 05/20/16 05/20/16 00:00 03:23 05:24 Temperature 98.0 F 98.6 F Pulse Rate 90 85 Respiratory 19 18 16 Rate Blood Pressure 145/63 143/68 (mmHg) O2 Sat by Pulse 93 93 Oximetry 05/20/16 05/20/16 05/20/16 07:24 07:25 08:00 Temperature 97.7 F Pulse Rate 80 Respiratory 18 18 18 Rate Blood Pressure 130/67 (mmHg) O2 Sat by Pulse 97 97 Oximetry 05/20/16 05/20/16 09:43 11:37 Temperature 98.7 F Pulse Rate 89 Respiratory 18 18 Rate Blood Pressure 131/72 (mmHg) O2 Sat by Pulse 95 Oximetry Oxygen Devices in Use Now: None Appearance: Male patient, sitting up in bed, in NAD Eyes: PERRLA Ears/Nose/Mouth/Throat: Clear Oropharnyx, Mucous Membranes Moist Neck: NL Appearance and Movements; NL JVP Respiratory: Symmetrical Chest Expansion and Respiratory Effort, Clear to Auscultation Cardiovascular: NL Sounds; No Murmurs; No JVD, RRR Abdominal: NL Sounds; No Tenderness; No Distention Extremities: No Edema, - - left hip dressing c/d/i Skin: No Rash or Ulcers Neurological: Alert and Oriented x 3 Result Diagrams: 05/20/16 06:46 05/20/16 06:46 Assess/Plan/Problems-Billing Assessment: 65 yo male with a PMH of HTN, DM, HLD who underwent an elective left total hip replacement by Dr. Schrader on 05/18. Hospital Medicine was asked to co-medical manage. - Patient Problems (1) Status post total hip replacement, left Code(s): Z96.642 - PRESENCE OF LEFT ARTIFICIAL HIP JOINT Comment: Dispo per ORTHO. POD #2 Doing well, plan for d/c home with ortho follow-up Pain management, bowel regimen. PT (2) Hyponatremia Code(s): E87.1 - HYPO-OSMOLALITY AND HYPONATREMIA Comment: Improved with IVF. (3) Diabetes Code(s): E11.9 - TYPE 2 DIABETES MELLITUS WITHOUT COMPLICATIONS Comment: HgbA1c 9.3, referral to [facility] Glucose elevated, did receive decadron in surgery. Continue Lispro SS and consistent carb diet. Resume oral medications at discharge; discussed adding Lantus to patient's regimen. He would like to try better diet adherence prior to using insulin. (4) HLD (hyperlipidemia) Code(s): E78.5 - HYPERLIPIDEMIA, UNSPECIFIED Comment: Continue statin. (5) HTN (hypertension) Code(s): I10 - ESSENTIAL (PRIMARY) HYPERTENSION Comment: Controlled. Pt is not currently on any medication. (6) DVT prophylaxis Code(s): [id number] - Comment: Per ortho, continue warfarin and enoxaparin. ASA on discharge. (7) Full code status Code(s): Z78.9 - OTHER SPECIFIED HEALTH STATUS Status and Disposition: Inpatient, Dispo per Ortho. Plan for d/c to home today.
--- NOTE | 2016-05-20 12:38 | DS ---
DISCHARGE SUMMARY: DATE OF ADMISSION: 05/18/16 DATE OF DISCHARGE: 05/20/16 ATTENDING PHYSICIAN: Vandana Schrader MD ADMISSION DIAGNOSIS: End-stage osteoarthritis, left hip joint. DISCHARGE DIAGNOSIS: End-stage osteoarthritis, left hip joint. SURGERY PERFORMED: Left total hip arthroplasty. HOSPITAL COURSE: The patient is a 65-year-old male that had over 1 year of severe left hip pain. He failed conservative treatment with antiinflammatories , cane, and physical therapy. He had previously undergone a right total hip arthroplasty for the same and did extremely well and elected to proceed with left total hip arthroplasty. He was taken to the operating room under the care of Dr. Vandana Schrader on the date of 05/18/16 for the aforementioned procedure. He tolerated the procedure well and left the operating room in stable condition. Postoperatively, he progressed extremely well with physical therapy and occupational therapy goals. He was able to ambulate with his walker essentially with contact guard postoperative day #1 with minimal pain. It was felt that he was stable orthopedically and medically for discharge to home on the day of 05/20/16. CONDITION ON DISCHARGE: The patient is afebrile. His vital signs are stable. His left hip incision is healing without evidence of infection. His gross neurovascular status is intact with active dorsiflexion, plantar flexion of his left ankle. His calf is soft and nontender. PLAN: He will be discharged today to home. Dr. Schrader has decided due to the fact that he is not yet therapeutic on the Coumadin that we would discontinue the Coumadin and instead place him on aspirin 325 mg p.o. b.i.d. Therefore, he will not need biweekly blood draws. He was instructed not to take his Coumadin that had been previously filled. He will take Percocet 5/325 mg 1 to 2 tablets q.4 hours p.r.n. pain. This prescription has also already been filled. He will follow up in the office with Dr. Schrader in roughly 10 to 14 days. He understands that he may shower in 2 days, but will avoid bathtub water or hot tub immersion of his incision. All questions were answered prior to his discharge. MAGEN NERI [id number]/[facility] #: [id number] [facility]ITAL[facility]aby
[2016-05-21] MEDS ORDERED: Scopolomine PATCH Remove* 1 NOTE MISC PATCH OFF SCH (13:00)
== END 2016-05-20 12:25 | disposition home health service (06) | DRG 301 ==
LOC: AA 08:24 → SSU 14:18
PROVIDERS: ADMIT Orthopaedic Surgery Adult Reconstructive Orthopaedic Surgery; ATTEND Orthopaedic Surgery Adult Reconstructive Orthopaedic Surgery
PROC: 0SRB04A Replacement of Left Hip Joint with Ceramic on Polyethylene Synthetic Substitute, Uncemented, Open Approach (ICD-10-PCS; principal; 2016-05-18 11:00)
DX: M16.12 Unilateral primary osteoarthritis, left hip (principal); E11.65 Type 2 diabetes mellitus with hyperglycemia; I10 Essential (primary) hypertension; E87.1 Hypo-osmolality and hyponatremia; K21.9 Gastro-esophageal reflux disease without esophagitis; Z96.641 Presence of right artificial hip joint; E78.5 Hyperlipidemia, unspecified; M25.752 Osteophyte, left hip; Z98.49 Cataract extraction status, unspecified eye; Z82.49 Family history of ischemic heart disease and other diseases of the circulatory system; Z83.3 Family history of diabetes mellitus; Z80.0 Family history of malignant neoplasm of digestive organs; Z79.82 Long term (current) use of aspirin
CPT/HCPCS: 36415; 72170; 80048; 83036; 85014; 85018; 85025; 85610; 88304; 88311; 94760; 99251; A9270-GY; C1713; C1776; J0690; J1100; J1650; J2250; J2405; J2704; J3010